=== PATIENT | female | born 1955 | race Caucasian/White ===

== ENCOUNTER 2018-01-03 06:46 | Day surgery (SDC) | payer OTHER ==
[~2018-01-03] VITALS: Ht 171.4 cm; Wt 104.0 kg
[~2018-01-03 06:46] MED LIST: ANASTROZOLE1 MG PO; ASPIR 8181 M1 PO; AZOR 10/40 M1 TABLET PO; OXYCONTIN20 MG PO; ROXICODONE5 MG PO
== END 2018-01-03 09:00 | disposition home or self-care (01) ==
LOC: CATH 06:46
DX: I87.8 Other specified disorders of veins (principal); I97.2 Postmastectomy lymphedema syndrome; C50.911 Malignant neoplasm of unspecified site of right female breast; M19.90 Unspecified osteoarthritis, unspecified site; I83.90 Asymptomatic varicose veins of unspecified lower extremity; Z90.49 Acquired absence of other specified parts of digestive tract; Z80.3 Family history of malignant neoplasm of breast; Z82.49 Family history of ischemic heart disease and other diseases of the circulatory system
CPT/HCPCS: C1751; C1894; J0690; J1644; J2250; J3010; S0020